=== PATIENT | female | born 1990 | race Caucasian/White ===

== ENCOUNTER 2020-07-23 10:33 | Outpatient (CLI) | payer BC ==
--- NOTE | 2020-07-23 11:11 | ULT ---
EXAM: US Breast Limited Rt DATE: 07/23/2020 10:52 AM INDICATION: Right breast pain in the 7:00 to 10:00 position COMPARISON: None. FINDING: Sonographic evaluation of the region of pain in the right breast 7:00 to 10:00 position rev eals no suspicious abnormality. IMPRESSION:BI-RADS Category 1-negative. No suspicious sonographic abnormality is seen within the adali on of pain in the right breast. We will refer this patient back to the ordering clinician. Negative imaging should not deter biopsy if findings on clinical exam are suspicious. Patient counseled on the findings prior to [facility].
== END 2020-07-23 10:34 | disposition home or self-care (01) ==
LOC: BICMAMMO 10:33
PROVIDERS: ATTEND Advanced Practice Midwife
DX: N64.4 Mastodynia (principal)